=== PATIENT | female | born 1980 | race Caucasian/White ===

== ENCOUNTER 2017-11-23 20:34 | Emergency (ER) | payer OTHER ==
[~2017-11-23] VITALS: Ht 165.1 cm; Wt 81.7 kg
[~2017-11-23 20:34] MED LIST: AMOX500 PO; AZIT250 PO; Amoxicillin500 M1 PO; CEPH500 PO; HYDACE5 PO; HYDGUAL120 PO; IBUP800; IBUP800 PO; LEVFLO500 PO; MUPI2TC TOP; Norco 5-325 Ta1 EACH PO; OXYACE5T PO; PROM50S PR; RXHYDACE PO; STOMUL
[2017-11-23 21:15] LABS: Source, Urine Clean Catch
[2017-11-23 21:18] LABS: Appearance, Urine Cloudy (Clear); Bilirubin, Urine Neg (Neg); Blood, Urine 5+ (Neg); Color, Urine Yellow (P-Yellow); Glucose Qualitative, Urine Neg (Neg); Ketones, Urine Neg (Neg); Leukocyte Esterase, Urine 3+ (Neg); Nitrite, Urine Neg (Neg); Protein, Urine 3+ (Neg); Urobilinogen, Urine 1+ (Normal)
[2017-11-23 21:25] LABS: Bacteria Many /hpf; Squamous Epithelial Cells Mod /hpf (Few); White Blood Cells, Urine TNTC /hpf (0-5)
[2017-11-23] MEDS ORDERED: Cipro500 MG PO (21:49)
[2017-11-23] MEDS ORDERED: Norco 5-325 Ta1 EACH PO (21:49)
== END 2017-11-23 22:00 | disposition home or self-care (01) ==
LOC: ER 20:34
PROVIDERS: Emergency Medicine
DX: N10 Acute pyelonephritis (principal); Z88.5 Allergy status to narcotic agent
CPT/HCPCS: 81001; 81025; 87077; 87086; 87186; 99284

== ENCOUNTER → 2021-04-01 | Outpatient (CLI) | payer OTHER ==
[~2021-04-01] MED LIST changes: +Cipro500 MG PO; +Veetids 500500 MG PO
== END ==
LOC: LAB 18:47 → LAB SHORT 18:47
DX: R35.0 Frequency of micturition (principal)
CPT/HCPCS: 87077; 87086; 87186